=== PATIENT | male | born 1960 | race Caucasian/White ===

== ENCOUNTER 2024-11-16 13:02 | Emergency (ER) | payer OTHER ==
[~2024-11-16] VITALS: Ht 167.6 cm; Wt 103.3 kg
[2024-11-16 13:09] VITALS: TEMP 97.2
[2024-11-16] MEDS: MORPHINE 2 MG/ML 1ML VIAL IV PRN (13:58)
[2024-11-16 14:09] LABS: BASO % 0.3 % (0.0-1.0); EOS # 0.1 10^3/uL (0.0-0.5); EOS % 1.7 % (0.0-3.0); HEMOGLOBIN 16.1 g/dl (13.5-17.5); LYMPH # 2.5 10^3/uL (1.5-5.0); LYMPH % 32.5 % (24.0-44.0); MEAN CORPUSCULAR HEMOGLOBIN 31.9 pg (27.0-33.0); MEAN CORPUSCULAR VOLUME 91.1 fl (80.0-96.0); MONO # 0.7 10^3/uL (0.0-0.8); MONO % 9.1 % (2.0-8.0); NEUTROPHILS # 4.3 10^3/uL (1.5-8.5); NEUTROPHILS % 55.9 % (36.0-66.0); PLATELET COUNT, AUTOMATED 174 10^3/uL (150-450); RED BLOOD COUNT 5.05 10^6/uL (4.30-6.10); WHITE BLOOD COUNT 7.6 10^3/uL (4.0-10.0)
[2024-11-16 14:21] LABS: INR 0.85; PARTIAL THROMBOPLASTIN TIME 26.7 SECONDS (24.8-34.2)
[2024-11-16 14:32] LABS: LIPASE 39 U/L (12-53)
[2024-11-16 14:34] LABS: AMYLASE 78 U/L (30-118)
[2024-11-16 14:35] LABS: ALBUMIN 4.2 G/DL (3.2-5.2); ALKALINE PHOSPHATASE 88 U/L (40-129); ALT/SGPT 66 U/L (7.0-40); AST/SGOT 40 U/L (<34); BILIRUBIN,DIRECT 0.1 MG/DL (<0.4); BILIRUBIN,TOTAL 0.4 MG/DL (0.3-1.2); BLOOD UREA NITROGEN 14 MG/DL (9-23); CALCIUM LEVEL 9.4 MG/DL (8.3-10.6); CARBON DIOXIDE LEVEL 23 MMOL/L (20-31); CHLORIDE LEVEL 106 MMOL/L (98-107); CREATININE FOR GFR 0.71 MG/DL (0.70-1.30); GLOMERULAR FILTRATION RATE > 90.0 (>49); GLUCOSE, FASTING 109 MG/DL (74-106); SODIUM LEVEL 141 MMOL/L (136-145); TOTAL PROTEIN 7.9 G/DL (5.7-8.2)
[2024-11-16] MEDS ORDERED: ISOVUE-370 76% 100ML VIAL As Ordered ONE (14:37)
[2024-11-16] MEDS: KETOROLAC 30 MG/ML 1ML VIAL IV ONE (16:16)
[2024-11-16 16:35] VITALS: BP 177/110
[2024-11-16] MEDS: amLODIPine 5 MG TAB PO ONE (16:35)
[2024-11-16] MEDS ORDERED: KETO-204 PO (17:08)
[2024-11-16] MEDS ORDERED: AMLO1TAB24 PO (17:08)
[2024-11-16] MEDS: NORCO 5/325MG TABLET (HOME DOSE PACK) PO ONE (17:10)
[2024-11-16 17:52] VITALS: BP 180/104; O2SAT 98
== END 2024-11-16 17:43 | disposition home or self-care (01) ==
LOC: M ED 13:02
DX: S06.0X0A Concussion without loss of consciousness, initial encounter (principal); S70.01XA Contusion of right hip, initial encounter; I51.7 Cardiomegaly; I10 Essential (primary) hypertension; V49.50XA Passenger injured in collision with unspecified motor vehicles in traffic accident, initial encounter; Y92.410 Unspecified street and highway as the place of occurrence of the external cause; Y93.89 Activity, other specified; Y99.9 Unspecified external cause status; Z79.899 Other long term (current) drug therapy
CPT/HCPCS: 70450; 71045; 71260; 72125; 72128; 72131; 73030; 74177; 80048; 80076; 82150; 83605; 83690; 85025; 85610; 85730; 93041; 94760; 96374; 96375; 96376; 99285; J1885; Q9967